=== PATIENT | male | born 1995 | race Caucasian/White ===

== ENCOUNTER 2021-12-28 17:40 | Inpatient (IN) | payer MEDICAID ==
[~2021-12-28] VITALS: Ht 182.9 cm; Wt 130.4 kg
[2021-12-28 18:24] LABS: BASO # 0.1 K/mm3 (0.0-0.2); BASO % 1.1 % (0.0-2.0); EOS # 0.1 K/mm3 (0.0-0.7); GRAN # 7.5 K/mm3 (1.4-6.5); GRAN % 76.5 % (42.2-75.2); HEMATOCRIT 49.6 % (42.0-52.0); HEMOGLOBIN 17.2 g/dl (13.5-18.0); LYMPH # 1.2 K/mm3 (1.2-3.4); LYMPH % 12.4 % (20.0-51.0); MEAN CELL VOLUME 84 fl (80.0-100.0); MEAN CORPUSCULAR HEMOGLOBIN 29 pg (27-31); MEAN CORPUSCULAR HGB CONC 35 g/dl (33.0-37.0); MEAN PLATELET VOLUME 9.3 fl (7.4-10.4); MONO # 0.9 K/mm3 (0.1-0.6); MONO % 8.7 % (1.7-9.3); PLATELET COUNT 305 K/mm3 (130-400); RED BLOOD COUNT 5.89 M/mm3 (4.20-5.60); REDCELL DISTRIBUTION WIDTH-CV 13.6 % (11.5-14.5)
[2021-12-28 18:29] LABS: COLLECTION METHOD CLEAN CATCH
[2021-12-28 18:35] LABS: PH 7 (5-8); SQUAMOUS EPITHELIAL 0-2 /hpf (0-10); URINE APPEARANCE Clear (CLEAR/HAZY); URINE BACTERIA None Seen /hpf (NONE SEEN); URINE BILIRUBIN Negative (NEGATIVE); URINE BLOOD Negative (NEGATIVE); URINE COLOR Amber (YELLOW); URINE GLUCOSE Negative (NEGATIVE); URINE KETONE Negative (NEGATIVE); URINE LEUKOCYTE ESTERASE Negative (NEGATIVE); URINE NITRATE Negative (NEGATIVE); URINE PROTEIN(semi-quant) 1+ (NEGATIVE); URINE RBC None Seen /hpf (0-2); URINE UROBILINOGEN >=4.0 (NEGATIVE)
[2021-12-28 18:39] LABS: ALANINE AMINOTRANSFERASE 41 U/L (0-55); ALBUMIN 3.4 gm/dL (3.5-5.0); ALCOHOL(ethanol),MEDICAL 58 mg/dL (0-10); ALKALINE PHOSPHATASE 118 U/L (40-150); ANION GAP 14 mmol/L (7-16); AST,SGOT 77 U/L (5-34); BILIRUBIN,TOTAL 1.7 mg/dL (0.2-1.2); BLOOD UREA NITROGEN 3 mg/dL (9-21); CALCIUM 9.2 mg/dL (8.4-10.2); CARBON DIOXIDE 23 mmol/L (22-29); CHLORIDE 99 mmol/L (98-107); CREATININE, serum 0.67 mg/dL (0.72-1.25); GLUCOSE 118 mg/dL (70-99); SODIUM 136 mmol/L (136-145)
[2021-12-28 18:43] LABS: ACETAMINOPHEN < 1.0 ug/mL (10-30); POTASSIUM 2.9 mmol/L (3.5-4.5); SALICYLATE < 5.0 mg/dL (15.0-30.0)
[2021-12-28 18:45] LABS: TRICYCLIC ANTIDEPRESS URINE NEGATIVE
[2021-12-29] VITALS (27 sets, daily range): BP systolic 138–179; BP diastolic 63–103; PULSE 84–118; TEMP 97.5–98.7
[2021-12-29] MEDS ORDERED: ATIVAN 0.50.5 MG/TAB PO (00:39)
[2021-12-29] MEDS ORDERED: KLONOPIN2 MG PO (00:39)
--- NOTE | 2021-12-29 00:43 | NUR ---
RECEIVED REPORT FROM Sallie RNISSA ON PATIENT. PATIENT ARRIVED TO ROOM 343 VIA W/C WITH PCT TRANSPORTING PATIENT FROM E.R. PATIENT UP AMBULATING IN ROOM ON HIS OWN POWER WITH NO GAIT DIFFICULTIES. DENIES ANY DISCOMFORT. TELE IN PLACE. INT IN PLACE TO R HAND. PATIENT PLEASANT AND COOPERATIVE, DID ADMIT TO SUICIDAL THOUGTHS WITH A GENERAL PLAN, FOR THE PAST 3 MONTHS, BUT NO MEANS TO CARRY OUT PLACE. INFORMED HOSPITALIST ONCALL OF PATIENT ARRIVAL TO ROOM AND OF SUICIDAL IDEATION/PLAN WITH NO MEANS TO CARRY OUT PLAN. PROVIDER TO ENTER APPROPRIATE ORDERS.
--- NOTE | 2021-12-29 03:01 | NUR ---
PATIENT C/O HEADACHE, WANTING TYLENOL. INFORMED HOSPITALIST PROVIDER OF PATIENT REQUEST, PROVIDER TO ENTER ORDERS.
--- NOTE | 2021-12-29 07:05 | NUR ---
CHANGE OF SHIFT REPORT GIVEN TO DAY SHIFT RNKATE.
[2021-12-29 07:43] LABS: BASO # 0.1 K/mm3 (0.0-0.2); BASO % 0.9 % (0.0-2.0); EOS # 0.2 K/mm3 (0.0-0.7); EOS % 1.8 % (0.0-4.0); GRAN # 5.5 K/mm3 (1.4-6.5); GRAN % 59.9 % (42.2-75.2); HEMATOCRIT 45.7 % (42.0-52.0); LYMPH # 2.6 K/mm3 (1.2-3.4); LYMPH % 28.5 % (20.0-51.0); MEAN CELL VOLUME 87 fl (80.0-100.0); MEAN CORPUSCULAR HEMOGLOBIN 29 pg (27-31); MEAN CORPUSCULAR HGB CONC 33 g/dl (33.0-37.0); MEAN PLATELET VOLUME 9.8 fl (7.4-10.4); MONO # 0.8 K/mm3 (0.1-0.6); MONO % 8.6 % (1.7-9.3); PLATELET COUNT 269 K/mm3 (130-400); RED BLOOD COUNT 5.25 M/mm3 (4.20-5.60); REDCELL DISTRIBUTION WIDTH-CV 13.9 % (11.5-14.5)
[2021-12-29 07:47] LABS: HEMOGLOBIN 15.1 g/dl (13.5-18.0)
[2021-12-29 07:50] LABS: INR 1.3 (0.8-3.0); PROTHROMBIN TIME 14.3 SECONDS (9.7-12.8)
[2021-12-29 07:53] LABS: PARTIAL THROMBOPLASTIN TIME 34.2 SECONDS (26.0-37.0)
[2021-12-29 08:03] LABS: ANION GAP 10 mmol/L (7-16); BLOOD UREA NITROGEN 4 mg/dL (9-21); CARBON DIOXIDE 25 mmol/L (22-29); CHLORIDE 103 mmol/L (98-107); CREATININE, serum 0.62 mg/dL (0.72-1.25); GLUCOSE 81 mg/dL (70-99); PHOSPHOROUS 3.1 mg/dL (2.3-4.7); POTASSIUM 3.6 mmol/L (3.5-4.5); SODIUM 138 mmol/L (136-145)
[2021-12-29 08:26] LABS: TSH w REFLEX < 0.003 uIU/mL (0.350-4.940)
--- NOTE | 2021-12-29 12:00 | NUR ---
PATIENT IS SLEEPING. NO NEEDS AT THIS TIME.
--- NOTE | 2021-12-29 12:54 | NUR ---
SW met with patient to complete intake. Patient states that he lives alone in [place]. Next of kin is his mother Keily [phone]. Patient provides that he does not utilize DME and is independent with ADL's. Patient states that he does not have a PCP and will need assistance, pharmacy used is [facility]. Patient provides that he does not have anyone appointed as his DPOA, and plans to return to his him he thinks upon DC, but states that he maybe with [facility]. STEPHANIE informed via documenation that [facility] is aware of inpatient status of patient. SW will continue to follow.
--- NOTE | 2021-12-29 13:15 | NUR ---
PATIENT TAKING SHOWER, SUPERVISED BY ROSALIO.
--- NOTE | 2021-12-29 18:30 | NUR ---
RECEIVED CHANGE OF SHIFT REPORT FROM DAY SHIFT RN.
--- NOTE | 2021-12-29 18:30 | NUR ---
PATIENT STATED TO AIDE HE "FELT LIKE THE [facility] WERE CLOSING IN AND HE WANTS TO SEE AND TALK TO HIS FRIENDS AND FAMILY."
[2021-12-30] VITALS (14 sets, daily range): BP systolic 124–155; BP diastolic 60–96; PULSE 79–89; TEMP 97.1–98.5
--- NOTE | 2021-12-30 06:30 | NUR ---
PATIENT STATES WHENEVER HE CLOSES HIS EYES WHEN RESTING LATELY HE SEES GHOSTS OF IMAGES LIKE WHAT HE HAS SEEN ON THE TV.
--- NOTE | 2021-12-30 07:13 | NUR ---
CHANGE OF SHIFT REPORT GIVEN TO DAY SHIFT RNMARTINA. ATTEMPTED TO CONTACT DR Michael ESCOBAR, RECORDING OF MAIL BOX NOT SET UP TO LEAVE MESSAGE.
--- NOTE | 2021-12-30 07:25 | NUR ---
INFORMED DAY SHIFT RN & DAY SHIFT WINDOWS APPLICATION PACKAGER OF ATTEMPT TO CALL DR ESCOBAR FOR CONSULT, UNABLE TO LEAVE MESSAGE.
--- NOTE | 2021-12-30 10:52 | NUR ---
Patient to have [facility] screen today for SI. Patients clinical information faxed to [facility]. Will await phone call for patient's zoom link information.
--- NOTE | 2021-12-30 14:32 | NUR ---
STEPHANIE attended clinical rounding. Hospitalist would like for the patient to be screened by [facility]. Contact made with [facility] and patient's clinical information faxed over. Dayna at [facility] calls stating that the patient was screened prior to coming into the ER and patient's screen faxed to the surical unit. [facility] states that at the time of screening, their recommendation is for the patient to be discharged to the [facility]. Per [facility], they will not screen the patient again unless there was something signigicant that has changed. LINDSAY Baez and hospitalist notified of this. Discharge plan: [facility] once medically stable
--- NOTE | 2021-12-30 14:41 | NUR ---
Patient's psych trevin from [facility] received to the unit. Patient's sitcker placed on packet and placed in the patient's chart.
--- NOTE | 2021-12-30 16:32 | NUR ---
pt has been accepted at the [facility]. Dr. Restrepo wants to keep patient one more night for monitoring. Pt. made aware of plan.
--- NOTE | 2021-12-30 19:45 | NUR ---
Bedside shift report received, assumed care for coverstitch elastic attacher. Assessment complete. A&Ox3. Denies pain/nausea/shortness of breath. VS stable. TELE reporting. INT to left hand flushes without difficulty. Plan of care discussed for this shift to include medications/calling for questions/concerns. Call light in reach. Will monitor.
[2021-12-31 01:00] VITALS: BP 128/74; PULSE 79
[2021-12-31 03:43] VITALS: BP 147/96; PULSE 88; TEMP 97.9
[2021-12-31 03:44] VITALS: BP 147/96; PULSE 88
--- NOTE | 2021-12-31 04:10 | NUR ---
Patient has had an uneventful night. Scored a 4 on CIWA protocol x1 and received ativan for that assessment. Denied pain/nausea/shortness of breath. VS remained stable with slight elevation in BP. TELE reporting SR. Slept most of this shift. Denies current needs. Call light in reach. Will monitor.
[2021-12-31 06:41] LABS: BASO # 0.1 K/mm3 (0.0-0.2); BASO % 0.5 % (0.0-2.0); EOS # 0.2 K/mm3 (0.0-0.7); EOS % 2.1 % (0.0-4.0); GRAN # 6.7 K/mm3 (1.4-6.5); GRAN % 68.9 % (42.2-75.2); HEMATOCRIT 44.7 % (42.0-52.0); HEMOGLOBIN 15.2 g/dl (13.5-18.0); MEAN CELL VOLUME 86 fl (80.0-100.0); MEAN CORPUSCULAR HEMOGLOBIN 29 pg (27-31); MEAN CORPUSCULAR HGB CONC 34 g/dl (33.0-37.0); MEAN PLATELET VOLUME 9.9 fl (7.4-10.4); MONO # 0.7 K/mm3 (0.1-0.6); MONO % 7.2 % (1.7-9.3); PLATELET COUNT 267 K/mm3 (130-400); RED BLOOD COUNT 5.23 M/mm3 (4.20-5.60); REDCELL DISTRIBUTION WIDTH-CV 13.5 % (11.5-14.5)
[2021-12-31 06:57] LABS: CALCIUM 8.4 mg/dL (8.4-10.2); CREATININE, serum 0.55 mg/dL (0.72-1.25); MAGNESIUM 1.4 mg/dL (1.6-2.6); POTASSIUM 3.7 mmol/L (3.5-4.5)
[2021-12-31 07:53] VITALS: BP 150/79; PULSE 70; TEMP 97.9
[2021-12-31] MEDS ORDERED: NORVASC 5MG5 MG/TAB PO (09:17)
[2021-12-31] MEDS ORDERED: FOLIC ACID 11 MG/TA1 PO (09:18)
[2021-12-31] MEDS ORDERED: PRINIVIL10 MG PO (09:18)
[2021-12-31] MEDS ORDERED: THIAMINE 1100 MG/TAB PO (09:18)
[2021-12-31] MEDS ORDERED: DUO-KAPS1 CAP PO (09:19)
--- NOTE | 2021-12-31 09:58 | NUR ---
Contact made to the [facility] and spoke with Dayna. Dayna reports that after i had faxed the patient's information to the CSU yesterday, they called up to the hospital and spoke with the patient's RN. Dayna states that they told the patient's RN the time that the current screen would become invalid and that the patient would need to be rescreened. This information was not passed along to me. The patients updated clinical information from today refaxed to the [facility] for the therapist to review and determine if the patient is needing to be rescreened or not. PA and patient's RN notified. Per patient's RN, the patient is starting to ask questions about checking himself out.
--- NOTE | 2021-12-31 10:03 | NUR ---
Received report from shift supervisor. Patient alert and oriented. VSS. Assessment performed. AM meds administered. Patient denies any pain or SOB. Patient waiting for a repeat screen from [place]. Gonzales, clinical social work therapist, is aware and will continue to update this nurse.
--- NOTE | 2021-12-31 11:19 | NUR ---
Maty with the [facility] calls to speak with the patient. Patient is open to talking with Maty and verbalizes that he would still like to go to the [facility]. Phone left with patient for him to speak with therapist. Maty calls confirming that the patient is still wanting to be admitted to the [facility] and that they do currently have a male bed open for him to come today. Maty reports that the patient requested for his grandparents to pick him up so he can go home and get some clothes. From there he is to go straight to the [facility]. Timeline provided to the patient from the therapist is 2 hours. Maty requests that the patient's current medication list and discharge orders be faxed to the [facility]. Information sent. LINDSAY Baez and patient's RN updated. Met with the patient after phone call and offered to call his grandparents. Patient would like for me to call his grandmother Michelle ([phone]). Phone call made, and due to her traveling to [place] she will reach out to the patient's grandfather to arrange a ride. Brief update provided to Michelle and patient informed that his grandfather will pick him up. All are in agreement of the patient discharging today to the [facility]. Discharge plan: [facility]
--- NOTE | 2021-12-31 11:26 | NUR ---
IV DC'd. Patient given paperwork for discharge. Patient denied any questions or concerns. Patient escorted out via wheelchair. Family waiting at entrance.
[2021-12-31] MEDS ORDERED: KLONOPIN2 MG PO (18:09)
[2021-12-31] MEDS ORDERED: ATIVAN 0.50.5 MG/TAB PO (18:18)
== END 2021-12-31 11:25 | disposition other institution (70) | DRG 880 ==
LOC: COL.ER 17:40 → SURG 23:01
PROVIDERS: Nurse Practitioner Family; Physician Assistant; ADMIT Student in an Organized Health Care Education/Training Program
DX: F41.9 Anxiety disorder, unspecified (principal); F33.1 Major depressive disorder, recurrent, moderate; R45.851 Suicidal ideations; F43.10 Post-traumatic stress disorder, unspecified; I10 Essential (primary) hypertension; E87.6 Hypokalemia; E83.42 Hypomagnesemia; F17.210 Nicotine dependence, cigarettes, uncomplicated; F10.10 Alcohol abuse, uncomplicated; E66.9 Obesity, unspecified; E05.80 Other thyrotoxicosis without thyrotoxic crisis or storm; Z68.39 Body mass index [BMI] 39.0-39.9, adult
CPT/HCPCS: 99223-AI; 99232-AI; 99239; J1650; J2060; J2560; J3411; J3475; J7030

== ENCOUNTER 2022-03-05 12:45 | Observation (INO) | payer MEDICAID ==
[~2022-03-05] VITALS: Ht 182.9 cm; Wt 122.7 kg
[2022-03-05] VITALS (12 sets, daily range): BP systolic 155–177; BP diastolic 87–115; PULSE 71–115; TEMP 98.1–98.3
[~2022-03-05 12:45] MED LIST: ATIVAN 0.50.5 MG/TAB PO; DUO-KAPS1 CAP PO; FOLIC ACID 11 MG/TA1 PO; KLONOPIN2 MG PO; NORVASC 5MG5 MG/TAB PO; PRINIVIL10 MG PO; THIAMINE 1100 MG/TAB PO
[2022-03-05 13:19] LABS: COLLECTION METHOD CLEAN CATCH
[2022-03-05 13:27] LABS: BASO # 0.1 K/mm3 (0.0-0.2); BASO % 0.7 % (0.0-2.0); EOS # 0.1 K/mm3 (0.0-0.7); EOS % 0.8 % (0.0-4.0); GRAN # 7.3 K/mm3 (1.4-6.5); GRAN % 69.3 % (42.2-75.2); HEMATOCRIT 48.6 % (42.0-52.0); HEMOGLOBIN 16.1 g/dl (13.5-18.0); LYMPH # 2.2 K/mm3 (1.2-3.4); LYMPH % 20.6 % (20.0-51.0); MEAN CELL VOLUME 85 fl (80.0-100.0); MEAN CORPUSCULAR HEMOGLOBIN 28 pg (27-31); MEAN CORPUSCULAR HGB CONC 33 g/dl (33.0-37.0); MEAN PLATELET VOLUME 8.9 fl (7.4-10.4); MONO # 0.9 K/mm3 (0.1-0.6); MONO % 8.2 % (1.7-9.3); PLATELET COUNT 315 K/mm3 (130-400); RED BLOOD COUNT 5.72 M/mm3 (4.20-5.60); REDCELL DISTRIBUTION WIDTH-CV 17.4 % (11.5-14.5)
[2022-03-05 13:31] LABS: MUCOUS Present (NOT PRESENT); PH 7 (5-8); SQUAMOUS EPITHELIAL 0-2 /hpf (0-10); URINE APPEARANCE Clear (CLEAR/HAZY); URINE BACTERIA None Seen /hpf (NONE SEEN); URINE BILIRUBIN Negative (NEGATIVE); URINE BLOOD Negative (NEGATIVE); URINE COLOR Amber (YELLOW); URINE GLUCOSE Negative (NEGATIVE); URINE KETONE 2+ (NEGATIVE); URINE LEUKOCYTE ESTERASE Negative (NEGATIVE); URINE NITRATE Negative (NEGATIVE); URINE PROTEIN(semi-quant) 2+ (NEGATIVE); URINE RBC 0-2 /hpf (0-2)
[2022-03-05 13:47] LABS: TRICYCLIC ANTIDEPRESS URINE NEGATIVE
[2022-03-05 13:50] LABS: ALANINE AMINOTRANSFERASE 15 U/L (0-55); ALBUMIN 4.1 gm/dL (3.5-5.0); ALKALINE PHOSPHATASE 103 U/L (40-150); ANION GAP 16 mmol/L (7-16); AST,SGOT 23 U/L (5-34); BILIRUBIN,TOTAL 1.8 mg/dL (0.2-1.2); BLOOD UREA NITROGEN 5 mg/dL (9-21); CALCIUM 8.6 mg/dL (8.4-10.2); CARBON DIOXIDE 22 mmol/L (22-29); CHLORIDE 102 mmol/L (98-107); CREATININE, serum 0.68 mg/dL (0.72-1.25); GLUCOSE 127 mg/dL (70-99); MAGNESIUM 1.4 mg/dL (1.6-2.6); POTASSIUM 3.3 mmol/L (3.5-4.5); SODIUM 140 mmol/L (136-145)
[2022-03-05 13:57] LABS: ACETAMINOPHEN < 1.0 ug/mL (10-30); ALCOHOL(ethanol),MEDICAL < 10 mg/dL (0-10); SALICYLATE < 5.0 mg/dL (15.0-30.0)
[2022-03-05] MEDS ORDERED: FOLIC ACID 11 MG/TA1 PO (17:58)
[2022-03-05] MEDS ORDERED: NORVASC 5MG5 MG/TAB PO (17:59)
[2022-03-05] MEDS ORDERED: ZESTRIL 10MG10 MG PO (17:59)
--- NOTE | 2022-03-05 18:21 | NUR ---
Patient arrived to the floor from ED. On q15min suicide checks per hospitalist and dry house tender orders. Room was sweeped prior to patient arrival and seizure pads were placed on the bed d/t patient's hx. Patient is pleasant and very cooperative.
--- NOTE | 2022-03-05 19:19 | NUR ---
Order for constant obervation from SUKI Gotti. Updated Bead Forming Machine Operator, and assigned staff member to constantly observe patient. Every 15 minute check's D/C'd due to constant observation.
[2022-03-05 19:48] LABS: INR 1.1 (0.8-3.0); PROTHROMBIN TIME 12.9 SECONDS (9.7-12.8)
[2022-03-05 19:50] LABS: PARTIAL THROMBOPLASTIN TIME 36.4 SECONDS (26.0-37.0)
--- NOTE | 2022-03-05 22:43 | NUR ---
Patient assessed around 1999. IV fluids started per orders to peripheral IV to left AC. Denies SOB and dyspnea. LS CTA. HRR. Telemetry in place. BP elevated, given scheduled medications per orders. Went over orders, detox protocol, as well as suicide precautions, and voiced understanding on protocols. Patient continues to have staff member assigned to watch him per protocol. In bed with call light within reach. Voices no further questions, needs, or concerns at this time.
--- NOTE | 2022-03-06 02:41 | NUR ---
[facility] unexpected downtime at approximately 2330. Back up at 0241.
--- NOTE | 2022-03-06 04:30 | NUR ---
Patient had been cooperative with cares and pleasant with staff until approximately midnight. At that time, he stated that he was going to leave AMA. This nurse called and updated Poster, as well as SUKI Gotti, who stated that due to the suicide risk, he is not allowed to leaved, and if he does that he will be put on a 72 hour psych hold. Explained this to patient who then got very upset. Patient took IV out and started getting dressed. Called Security and requested assistance around 0010. Ana María in room around 0015 and explained situation to patient face to face. Patient sitting in recliner, no longer activetly trying to leave around 0045. Patient had grandfater in ER, stated that he was there to excelsior picker patient. Ana María called and asked if it was ok to give information to grandfather and patient said no. Was agreeable for him to be told that he will not be leaving tonight. Patient has been sitting in recliner most of shift after episode. Does not want to wear telemetry, and is refusing any and all medications. States that he no longer trusts staff. Asked what made him not trust the staff, and patient would just repeat, "why would you do that." Around 0330 patient upset because he does not have a phone to call anyone. Verrifed with Poster who stated that at this time, he can not call anyone. Updated patient who again got upset. Called security again just in case patient had increased agitation. Did try to explain to patient policies but patient would argue with this nurse. Offered snack/food/drink/bathroom, etc, and patient declined all. Patient seemed to have increased agitation when seeing application security architect, threatening to become physically violent towards application security architect if the was to enter his room. Had application security architect stay close to nurse's station, but out of site of patient to help decrease agitation. Patient cotninues to be in recliner watching TV at this time. Patient continues to deny any needs except wanting to leave. Sitter remains outside of room for constant observation. Continues to refuse telemetry, VS, and medicaitons.
[2022-03-06 06:08] VITALS: BP 158/87; PULSE 79
--- NOTE | 2022-03-06 06:14 | NUR ---
Pt outside of room, pacing back and forth. Fully dressed. When asked how I could help, he responded by saying, "I'm waiting for the police". Security standing by.
--- NOTE | 2022-03-06 06:17 | NUR ---
Police here engaging patient in conversation.
[2022-03-06 06:37] VITALS: BP 158/87; PULSE 79
--- NOTE | 2022-03-06 07:05 | NUR ---
This RN took over care of the patient. Report received from rossy ge RN. Patient was with [employer] officer at time of this RNs arrival. Once [employer] was out of the room, this RN spoke with the patient. Patient felt he wasn't going to receive good care on this floor and felt overnight staff was disrespectful. Patient wanted to go to another floor, but was not able to do so, and felt going back to [facility] would be a better option for him. The patient stated he was excited to be back in the hospital to get the help he needed w/ his detox. Patient remains slightly agitated and is sitting on the couch. Patient insistent that he will leave AMA to go back to the [facility]. Currently waiting for [facility] to screen the patient, for hospitalist to see the patient this morning.
--- NOTE | 2022-03-06 07:08 | NUR ---
Around 0550, patient comming out of room. pharmaceutical officer still on medical floor. Patient yelling and agitated, saying that he wanted to leave. Unable to get ahold of SUKI Gotti. Called Cardroom Drawing Runner who came to see patient. [employer] was called by another nurse at approximately 0607, as patient was yelling, pacing in hallway, not willing to go to room and demanding to see police. Police arrived and spoke with Cardroom Drawing Runner. [place] called Dr. Menendez and updated on patient. Cardroom Drawing Runner called [facility] who stated that they would be coming to screen patient at 0800. Police updated patient. Report given to day shift nurse.
[2022-03-06 07:30] VITALS: BP 158/87; PULSE 79
--- NOTE | 2022-03-06 07:56 | NUR ---
Patient grew agitated and attempted to walk outside. This RN stayed beside the patient to attempt to deescalate the situation. Security was called. Patient began wandering around the hospital, attempting to find the ER exit to get to his grandpa. This RN stayed with the patient. Security met with this RN and the patient at elevator C. Patient walked up the stairs to the 2nd floor to get to the ER. Patient walked out of the ER to his grandpa's vehicle. This RN and security followed. This RN and the patient's grandpa were able to talk the patient down. Patient smoked a cigarette and paced around for a bit. This RN continued to encourage the patient to be screened by [facility], so that his bed at the [facility] could be kept. Patient agreed to walk back up to the floor as long as his grandpa came with. This accommodation was met. Patient is currently sitting in his room w/ his grandpa, sitter outside of the door. Patient is clearly anxious but refusing any medications. Currently awaiting [facility] to come and screen patient.
--- NOTE | 2022-03-06 09:22 | NUR ---
Patients clinical information faxed to [facility] for screening. Patient endorsed SI but is denying SI thoughts. Rn reports that he has tried to leave AMA multiple times this morning and at one point, [employer] was called with the addition to our security team. Patient placed on an involuntary hold. Patient pulled his IV line and refusing to take medications.
[2022-03-06] MEDS ORDERED: MULTI VITAMINS1 TAB PO (10:07)
[2022-03-06] MEDS ORDERED: THIAMINE 1100 MG/TAB PO (10:07)
[2022-03-06] MEDS ORDERED: K-TAB20 PO (10:08)
[2022-03-06] MEDS ORDERED: FOLIC ACID 11 MG/TA1 PO (10:08)
[2022-03-06] MEDS ORDERED: MAG-OX 400400 MG/TAB PO (10:08)
--- NOTE | 2022-03-06 10:08 | NUR ---
Patient being discharged. Patient's grandfather to take patient back to [facility]. [facility] has agreed to manage patient's detox. All instructions discussed w/ patient and grandfather. Bother parties verbalized understanding. Currently awaiting proper discharge paperwork.
[2022-03-06] MEDS ORDERED: ATIVAN 1MG T1 MG/TAB PO (10:12)
--- NOTE | 2022-03-06 10:55 | NUR ---
Patient signed appropriate discharge paperwork. Instructed to go back to [facility].
--- NOTE | 2022-03-06 11:21 | NUR ---
STEPHANIE facilitated zoom meeting with therapist at [facility]. Post meeting with the patient she states that they are able to accept this patient back to the [facility] as long as the MD can discharge him with medication to manage his CIWA scores. 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 she stated that going to the [facility] yesterday was the first time he has been out of him home in those two years. STEPHANIE collaborated with with MD who is agreeable to this plan. Patients grandfather to cone picker medications and take the patient directly to the [facility] which he verbalized he agreement with. [facility] contacted when patient discharged. Discharge plan: [facility]
== END 2022-03-06 10:45 | disposition home or self-care (01) ==
LOC: COL.ER 12:45 → MEDICAL 16:23
PROVIDERS: Nurse Practitioner Family; Physician Assistant; ADMIT Internal Medicine
DX: F10.239 Alcohol dependence with withdrawal, unspecified (principal); I10 Essential (primary) hypertension; E87.6 Hypokalemia; E83.42 Hypomagnesemia; F41.9 Anxiety disorder, unspecified; F32.9 Major depressive disorder, single episode, unspecified; F17.210 Nicotine dependence, cigarettes, uncomplicated
CPT/HCPCS: G0378; J2060; J3411; J3475; J7030; J7120